=== PATIENT | male | born 1990 | race American Indian/Alaskan Native ===

== ENCOUNTER 2017-01-01 21:25 | Emergency (ER) | payer OTHER ==
[2017-01-01 21:59] VITALS: BP 127/86
[2017-01-01] MEDS ORDERED: TRIPLE ANTIBIOTIC TP ONE ×2 (23:26→23:30)
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
== END 2017-01-02 00:15 | disposition home or self-care (01) ==
LOC: ED 21:25
DX: S00.91XD Abrasion of unspecified part of head, subsequent encounter (principal)
CPT/HCPCS: 93005; 93010; 99283; A6250